=== PATIENT | female | born 1960 | race Caucasian/White ===

== ENCOUNTER 2018-02-11 21:01 | Emergency (ER) | payer BC ==
[~2018-02-11] VITALS: Ht 172.7 cm; Wt 88.9 kg
[2018-02-11 21:13] VITALS: Ht 172.7 cm; Wt 88.9 kg
[2018-02-11 23:46] LABS: BASOPHIL % 0.3 % (0-2); PLATELET COUNT 269 x10^3mcL (130-400)
[2018-02-11 23:55] LABS: RED CELL DISTRIBUTION WIDTH 14.9 % (11.5-14.5)
[2018-02-12] LABS: ALBUMIN 3.6 g/dL (3.4-5.0); BILIRUBIN DIRECT 0.14 mg/dL (0.0-0.2); BILIRUBIN TOTAL 0.3 mg/dL (0.20-1.00); CREATININE SERUM 0.9 mg/dL (0.6-1.0); TOTAL PROTEIN, SERUM 7.5 g/dL (6.4-8.2)
[2018-02-12 00:44] VITALS: BP 130/87
== END 2018-02-12 00:44 | disposition home or self-care (01) ==
LOC: ED 21:01
PROVIDERS: Emergency Medicine
DX: R23.3 Spontaneous ecchymoses (principal)
CPT/HCPCS: 36415; J7512